=== PATIENT | male | born 1990 ===

== ENCOUNTER 2021-05-14 13:00 | Emergency (ER) | payer OTHER ==
[2021-05-14 14:17] VITALS: BP 143/83
--- NOTE | 2021-05-14 15:18 | Emergency Department Report ---
ED Eye Problem HPI - General Chief complaint: Eye Problems Stated complaint: (L) EYE STY Time Seen by Provider: 05/14/21 15:12 Source: patient Mode of arrival: Ambulatory Limitations: No Limitations - History of Present Illness Initial comments: This is a 31-year-old female nontoxic, well nourished in appearance, no acute signs of distress presents to the ED with c/o of left lower eyelid swelling x 4 days. Stated has history of recurrent stye. Denies any symptoms to the eye. Patient denies any trauma to the eye. Denies any discharge or crusting to the eyes. Denies any foreign body sensation or floaters. Patient denies any eye pain. Patient denies any visual changes or decreased vision. Patient denies any fever, chills, nausea, vomiting, chest pain, breath, headache, stiff neck numbness or tingling. Patient denies any allergies. -: days(s) Onset Description: gradual Location: left eye If Injury: none Severity scale (0 -10): 0 Associated Symptoms: none. denies: headache, neck pain, nausea/vomiting, cough, rhinorrhea, fever, shortness of breath Treatments Prior to Arrival: none - Related Data Previous Rx's Medication Instructions Recorded Last Taken Type Erythromycin [Erythromycin Ophth 10 applic OS BID 7 Days #1 tube 05/14/21 Unknown Rx Oint] Allergies Allergy/AdvReac Type Severity Reaction Status Date / Time No Known Allergies Allergy Verified 05/14/21 14:16 ED Review of Systems ROS: Stated complaint: (L) EYE STY Other details as noted in HPI Comment: All other systems reviewed and negative Constitutional: denies: chills, fever Eyes: denies: eye pain, eye discharge, vision change ENT: denies: ear pain, throat pain Respiratory: denies: cough, shortness of breath, wheezing Cardiovascular: denies: chest pain, palpitations Endocrine: no symptoms reported Gastrointestinal: denies: abdominal pain, nausea, diarrhea Genitourinary: denies: urgency, dysuria Musculoskeletal: denies: back pain, joint swelling, arthralgia Skin: denies: rash, lesions Neurological: denies: headache, weakness, paresthesias Psychiatric: denies: anxiety, depression Hematological/Lymphatic: denies: easy bleeding, easy bruising ED Past Medical Hx - Medications Home Medications: Home Medications Medication Instructions Recorded Confirmed Last Taken Type Erythromycin [Erythromycin Ophth 10 applic OS BID 7 Days #1 tube 05/14/21 Unknown Rx Oint] ED Physical Exam - General Limitations: No Limitations General appearance: alert, in no apparent distress - Head Head exam: Present: atraumatic, normocephalic - Eye Eye exam: Present: normal appearance, PERRL, EOMI, other (left lower eyelid stye. no driage. no abscess or cellulitis on exam.). Absent: scleral icterus, conjunctival injection, nystagmus, periorbital swelling, periorbital tenderness - Neck Neck exam: Present: normal inspection, full ROM. Absent: lymphadenopathy - Respiratory Respiratory exam: Absent: respiratory distress - Cardiovascular Cardiovascular Exam: Present: regular rate - Extremities Exam Extremities exam: Present: full ROM - Back Exam Back exam: Present: normal inspection, full ROM - Neurological Exam Neurological exam: Present: alert, oriented X3, normal gait - Psychiatric Psychiatric exam: Present: normal affect, normal mood - Skin Skin exam: Present: warm, dry, intact, normal color. Absent: rash ED Course Vital Signs 05/14/21 14:16 Temperature 98.6 F Pulse Rate 75 Respiratory 14 Rate Blood Pressure 143/83 [Left] O2 Sat by Pulse 98 Oximetry - Reevaluation(s) Reevaluation #1: 05/14/21 15:19 Patient is speaking in full sentences with no signs of distress noted. ED Medical Decision Making - Medical Decision Making 31-year-old male that presents with left lower eyelid stye. Patient is stable and was examined by me. Physical exam otherwise is unremarkable. Patient was instructed to apply warm compressors to the eye. Will also give erythromycin opth ointment. patient was instructed to follow-up with a heel seat sander doctor in 3-5 days or if symptoms worsen and continue return to emergency room as soon as possible. At time of discharge, the patient does not seem toxic or ill in appearance. No acute signs of distress noted. Patient agrees to discharge treatment plan of care. No further questions noted by the patient. Critical care attestation.: If time is entered above; I have spent that time in minutes in the direct care of this critically ill patient, excluding procedure time. ED Disposition Clinical Impression: Hordeolum externum left lower eyelid Disposition: HOME / SELF CARE / HOMELESS Is pt being admited?: No Does the pt Need Aspirin: No Condition: Stable Instructions: Ajit Additional Instructions: Follow-up with a heel seat sander doctor in 3-5 days or if symptoms worsen and continue return to emergency room as soon as possible. Prescriptions: Erythromycin [Erythromycin Ophth Oint] 10 applic OS BID 7 Days #1 tube Referrals: PRIMARY CARE, [Referring] - 3-5 Days SCOTT PEDROZA MD [Staff Physician] - 3-5 Days Time of Disposition: 15:24
== END 2021-05-14 15:45 | disposition home or self-care (01) ==
LOC: ED 13:00
DX: H00.015 Hordeolum externum left lower eyelid (principal); Z79.899 Other long term (current) drug therapy
CPT/HCPCS: 99282